=== PATIENT | female | born 1965 | race Two or more races ===

== ENCOUNTER 2017-07-04 07:15 | Emergency (ER) | payer OTHER ==
[2017-07-04 07:27] VITALS: BP 102/75; PULSE 89; TEMP 97.6; BMI 27.2
--- NOTE | 2017-07-04 08:08 | PDOC ---
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 She states that she attempted to get out of bed today after a blood draw and she was feeling a bit weak and didn't completely grab the bed rail. She then fell forward and hit her head and ribs on the side table. Her main complaint currently is of some light head pain and right rib pain.She does admit to some lightheadedness and a sensation of her heart racing when getting up after he blood draw directly prior to the fall. She denies loss of consciousness or any new focal deficit. She does have some arm weakness as a prodrome of her seizure onset but admits that this is a different feeling. She does admit that the right side of her face has felt occasionally numb since her incident in 2012. Denies nausea, vomiting, diarrhea, palpitations, or any other sick symptoms. 07/04/17 08:08 Past History - Past Medical History Allergies/Adverse Reactions: Allergies Allergy/AdvReac Type Severity Reaction Status Date / Time No Known Allergies Allergy Verified 07/04/17 07:27 Home Medications: Ambulatory Orders Levetiracetam [Keppra -] 750 mg PO BID 06/30/17 Albuterol Sulfate Inhaler - [Ventolin HFA Inhaler -] 2 inh PO Q4H PRN #1 inh Anemia: Yes (MVI) Asthma: Yes (MDI) Cardiac Disorders: No CVA: No (traumatic brain injury) COPD: No Diabetes: No GI Disorders: No Disorders: No HTN: No Hypercholesterolemia: No Kidney Stones: No Seizures: Yes (r/t head trauma-last episode was a week ago) Thyroid Disease: No - Surgical History Abdominal Surgery: No Appendectomy: No Cardiac Surgery: No Cholecystectomy: No Lung Surgery: No Neurologic Surgery: Yes (craniotomy) Orthopedic Surgery: No - Reproductive History PID: No - Suicide/Smoking/Psychosocial Hx Smoking History: Never smoked Have you smoked in the past 12 months: No Information on smoking cessation initiated: No Hx Alcohol Use: Yes Drug/Substance Use Hx: Yes (cocaine) Substance Use Type: Alcohol, Cocaine Hx Substance Use Treatment: Yes (PREVIOUS TX AT [facility] ) Review of Systems - Review of Systems Constitutional: No: Chills, Diaphoresis, Fever HEENTM: No: Blurred Vision Respiratory: No: Cough, Shortness of Breath Cardiac (ROS): No: Chest Pain ABD/GI: No: Diarrhea, Nausea, Vomiting : No: Burning, Dysuria Integumentary: No: Bruising, Change in Color, Erythema, Lesions, Lumps Neurological: Yes: Headache, Numbness, Tingling *Physical Exam - Vital Signs Last Vital Signs Temp Pulse Resp BP Pulse Ox 97.6 F 89 18 102/75 100 07/04/17 07:22 07/04/17 07:22 07/04/17 07:22 07/04/17 07:22 07/04/17 07:22 - Physical Exam General Appearance: Yes: Nourished, Appropriately Dressed. No: Apparent Distress HEENT: positive: EOMI, BRENDA, Normal Voice. negative: Normal ENT Inspection ( Depression in the right fronto temporal region at site of endorsed craniectomy. No brusing, skin brekage, or swelling noted anywhere on her scalp or face. ) Neck: positive: Trachea midline, Normal Thyroid, Supple. negative: Tender, Rigid Respiratory/Chest: positive: Lungs Clear, Normal Breath Sounds. negative: Chest Tender, Respiratory Distress Cardiovascular: positive: Regular Rhythm, Regular Rate. negative: JVD, Murmur Gastrointestinal/Abdominal: positive: Normal Bowel Sounds, Flat, Soft. negative : Tender Musculoskeletal: negative: Normal Inspection (Some slight left hip tenderness with full flexion. Patient able to ambualte without diffuclty.), CVA Tenderness Extremity: positive: Normal Capillary Refill, Normal Inspection, Normal Range of Motion Integumentary: positive: Normal Color, Dry, Warm Neurologic: positive: [employer] II-XII NML intact, Fully Oriented, Alert, Normal Mood/ Affect, Normal Response, Motor Strength 5/5, Other (Has a slight sensory deficit that on the right side of her face that is chronic.) ED Treatment Course - LABORATORY CBC & Chemistry Diagram: 07/04/17 08:50 07/04/17 08:53 Medical Decision Making - Medical Decision Making Head CT and rib series were negative for acute intra-cranial process or rib fracture. Patient feeling better after Tylenol 650 and we spoke to [facility] to send patient back to detox. Sent back with results and return precautions. 07/04/17 11:40 *DC/Admit/Observation/Transfer Diagnosis at time of Disposition: Rib pain on right side Fall Qualifiers: Encounter type: initial encounter Qualified Code(s): W19.XXXA - Unspecified fall, initial encounter - Discharge Dispostion Disposition: I.P. ALCOHOL/SUBS ABUSE REHAB Admit: No - Patient Instructions Additional Instructions: You were seen for headache and rib pain after you fell and hit your head and your ribs. Your head imagin did not show any bleed. Your ribs did no appeared fractured or broken our view. Please take Tylenol and ibuprofen for the pain. Please return to the ED if you have new or worsening symptoms.
[2017-07-04] MEDS ORDERED: SODIUM CHLORIDE 0.9% 1000 ML INFUS.BAG IV ONE (09:02)
[2017-07-04 09:06] LABS: EOSINOPHIL 4.7 % (0-4.5); MCH 33.6 pg (25.7-33.7); MCHC 34.7 g/dl (32.0-36.0); MEAN PLT VOLUME 8.1 fl (7.5-11.1); NEUTROPHILS 48.2 % (42.8-82.8); PLATELET COUNT 171 K/MM3 (134-434); RDW 14.5 % (11.6-15.6); WHITE BLOOD COUNT 4.2 K/mm3 (4.0-10.0)
[2017-07-04 09:12] LABS: URINE APPEARANCE CLEAR; URINE BILIRUBIN NEGATIVE (NEGATIVE); URINE BLOOD NEGATIVE (NEGATIVE); URINE COLOR LTYELLOW; URINE GLUCOSE (UA) NEGATIVE (NEGATIVE); URINE KETONE NEGATIVE (NEGATIVE); URINE NITRITE NEGATIVE (NEGATIVE); URINE PROTEIN NEGATIVE (NEGATIVE); URINE UROBILINOGEN NEGATIVE mg/dL (0.2-1.0)
--- NOTE | 2017-07-04 09:21 | PDOC ---
Attending Attestation - Resident Resident Name: Rolanda Elias - ED Attending Attestation I have performed the following: I have examined & evaluated the patient, The case was reviewed & discussed with the resident, I agree w/resident's findings & plan, Exceptions are as noted - HPI HPI: 07/04/17 09:21 52-year-old female with history of TBI, alcohol and cocaine abuse currently an inpatient at [facility] for further evaluation after fall protocol was activated this morning. Had unwitnessed fall in the setting of feeling lightheaded after blood draw, positive head injury against table, no loss of consciousness. Complaining of some right rib discomfort, but no shortness of breath. - Physicial Exam PE: 07/04/17 11:19 General: Patient is alert and in no acute distress. Speech is clear and appropriate. Head: Atraumatic and nontender. HEENT: Pupils are equal round and reactive to light, extraocular movements are intact. The tympanic membranes are clear, no hemotympanum. No facial deformity/ tenderness, no septal hematoma. The oropharynx is clear. Neck: The trachea is midline, there is no stridor. There is no midline cervical spine tenderness, full range of motion of neck. Chest: Slight discomfort to palpation R ribs around 6-8 in the axillary line, no ecchymosis or abrasions or crepitus. Heart: S1-S2, regular rate and rhythm. No murmurs. Lungs: Clear to auscultation bilaterally. Symmetric chest rise. Abdomen: Soft/nontender/nondistended. Bowel sounds are normal. There is no abdominal or flank ecchymosis. Back/Pelvis: There is no midline spine tenderness or step-off. Pelvis is stable and nontender. Extremities: There is no extremity deformity or joint swelling. No focal bony tenderness throughout. 2+ distal pulses throughout. Neuro: Alert and oriented x3. Cranial nerves II through XII are intact. 5 out of 5 motor strength x4 extremities. [id number] is intact. No pronator drift. Gait is stable. Skin: No abrasions/hematomas/lacerations. Psych: Affect is appropriate. - Medical Decision Making 07/04/17 11:20 Patient seen and evaluated with the resident. I agree with the overall evaluation, assessment, and management with the following summary of visit: 52-year-old female inpatient at [facility] undergoing alcohol and cocaine detox presents with mechanical fall this morning with head and right rib injury, no loss of consciousness. No cardiopulmonary complaints or findings, neurologically intact. Labs are within normal limits EKG is nonischemic, intervals are normal with QTC 435 CT head nontraumatic Rib series Otherwise well-appearing, likely return to [facility].
[2017-07-04 09:30] LABS: ALBUMIN 3.7 g/dl (3.4-5.0); ANION GAP 8 (8-16); BILIRUBIN,TOTAL 0.3 mg/dL (0.2-1.0); CALCIUM 8.7 mg/dL (8.5-10.1); CO2 28 mmol/L (21-32); CREATININE 0.5 mg/dL (0.55-1.02); GLUCOSE,RANDOM 95 mg/dL (74-106); SGPT/ALT 46 U/L (12-78); TOT PROT 7.3 g/dl (6.4-8.2)
[2017-07-04 09:33] LABS: ALK PHOS 56 U/L (45-117); CPK 125 IU/L (26-192); SGOT/AST 54 U/L (15-37); TROPONIN I < 0.02 ng/ml (0.00-0.05)
[2017-07-04] MEDS ORDERED: ACETAMINOPHEN 325 MG TABLET (FP) PO ONE (11:22)
[2017-07-04] MEDS ORDERED: ACETAMINOPHEN 325 MG TABLET (FP) ONE (11:39)
[2017-07-04 13:03] LABS: URINE LEUK ESTERASE Negative (NEGATIVE)
--- NOTE | 2017-07-04 14:42 | EKG ---
Test Reason : Blood Pressure : / mmHG Vent. Rate : 086 BPM Atrial Rate : 086 BPM P-R Int : 126 ms QRS Dur : 070 ms QT Int : 364 ms P-R-T Axes : 048 041 036 degrees QTc Int : 435 ms NORMAL SINUS RHYTHM NORMAL ECG WHEN COMPARED WITH ECG OF 30-JUN-2017 13:20, NO SIGNIFICANT CHANGE WAS FOUND Confirmed by JODIE MABRY MD ([id number]) on 07/04/2017 2:41:49 PM Referred By: Confirmed By:JODIE MABRY MD
== END 2017-07-04 13:30 | disposition other institution (70) ==
LOC: JER 07:15
DX: S09.8XXA Other specified injuries of head, initial encounter (principal); S29.8XXA Other specified injuries of thorax, initial encounter; W06.XXXA Fall from bed, initial encounter; Y93.89 Activity, other specified; Y92.230 Patient room in hospital as the place of occurrence of the external cause; J45.909 Unspecified asthma, uncomplicated; D64.9 Anemia, unspecified; F10.20 Alcohol dependence, uncomplicated; F14.20 Cocaine dependence, uncomplicated; G40.909 Epilepsy, unspecified, not intractable, without status epilepticus; Z86.73 Personal history of transient ischemic attack (TIA), and cerebral infarction without residual deficits
CPT/HCPCS: 36415; 70450-TC; 71101-TC-RT; 80053; 81003; 82550; 84484; 84703; 85025; 93005; 93010; 99283-25